=== PATIENT | female | born 1930 | race Caucasian/White ===

== ENCOUNTER 2019-02-16 16:56 | Inpatient (IN) | payer MEDICARE, OTHER ==
[~2019-02-16] VITALS: Ht 161 cm; Wt 85.7 kg
[2019-02-16] MEDS ORDERED: HYDR-3980 PO (19:06)
[2019-02-16] MEDS ORDERED: CALC300T4 PO (19:06)
[2019-02-16] MEDS ORDERED: ZOLP5TAB2 PO (19:06)
[2019-02-16] MEDS ORDERED: ATEN25TA PO (19:06)
[2019-02-16] MEDS ORDERED: CHOL10005 PO (19:06)
[2019-02-16] MEDS ORDERED: ENOX40DI SQ (19:06)
[2019-02-16] MEDS ORDERED: ACET-2154 PO (19:06)
[2019-02-16] MEDS ORDERED: ESCI10TA55 PO (19:06)
[2019-02-16] MEDS ORDERED: CARB-93 PO (19:06)
[2019-02-16] MEDS ORDERED: LEVO112T5 PO (19:06)
[2019-02-16] MEDS ORDERED: HYDR-3326 PO (19:06)
[2019-02-16] MEDS ORDERED: ATOR20TA PO (19:06)
[2019-02-16] MEDS ORDERED: ENTA200T3 PO (19:06)
[2019-02-16] MEDS ORDERED: CYAN-51 PO (19:06)
[2019-02-16] MEDS ORDERED: AMAN100T PO (19:06)
[2019-02-16 19:40] VITALS: BP 115/76
[2019-02-16] MEDS ORDERED: ZOLPIDEM 5 MG TABLET PO SCH (20:45)
[2019-02-16] MEDS: ACETAMINOPHEN 325 MG TABLET PO PRN (22:05)
[2019-02-16] MEDS: ATORVASTATIN 20 MG TABLET PO SCH (22:05)
[2019-02-16] MEDS ORDERED: ENOXAPARIN SODIUM 40 MG/0.4 ML DISP.SYRIN SQ ONE (23:00)
[2019-02-17] MEDS ORDERED: HYDROCODONE/APAP 10-325 MG TABLET PO PRN
[2019-02-17 04:00] VITALS: BP 138/73
[2019-02-17] MEDS ORDERED: ZOLPIDEM 5 MG TABLET PO PRN (06:45)
[2019-02-17] MEDS: ACETAMINOPHEN 325 MG TABLET PO PRN ×3 (07:00→21:32)
[2019-02-17] MEDS: LEVOTHYROXINE SODIUM 112 MCG TABLET PO SCH (07:16)
[2019-02-17 08:00] VITALS: BP 127/70
[2019-02-17] MEDS: CALCIUM CARBONATE 500 MG TAB.CHEW PO SCH (09:01)
[2019-02-17] MEDS: ESCITALOPRAM OXALATE 10 MG TABLET PO SCH (09:01)
[2019-02-17] MEDS: AMANTADINE HCL 100 MG CAPSULE PO SCH (09:01)
[2019-02-17] MEDS: ENTACAPONE 200 MG TABLET PO SCH ×3 (09:01→16:37)
[2019-02-17] MEDS: CHOLECALCIFEROL 400 UNITS TABLET PO SCH (09:01)
[2019-02-17] MEDS: CARBIDOPA/LEVODOPA 25-100MG TABLET PO SCH ×3 (09:02→16:37)
[2019-02-17] MEDS: CYANOCOBALAMIN 1,000 MCG TABLET PO SCH (09:02)
[2019-02-17] MEDS: ATENOLOL 25 MG TABLET PO SCH (09:03)
[2019-02-17] MEDS: HYDROCODONE/APAP 5-325MG TABLET PO PRN (09:11)
[2019-02-17] MEDS ORDERED: ENOXAPARIN SODIUM 40 MG/0.4 ML DISP.SYRIN SQ SCH ×2 (09:19→09:21)
[2019-02-17 16:56] VITALS: BP 125/67
[2019-02-17] MEDS: ATORVASTATIN 20 MG TABLET PO SCH (20:34)
[2019-02-17] MEDS: ENOXAPARIN SODIUM 40 MG/0.4 ML DISP.SYRIN SQ SCH (20:37)
[2019-02-17 20:51] VITALS: BP 127/78
[2019-02-18 05:33] VITALS: BP 139/72
[2019-02-18] MEDS: LEVOTHYROXINE SODIUM 112 MCG TABLET PO SCH (06:30)
[2019-02-18 07:57] VITALS: BP 133/66
[2019-02-18] MEDS: CALCIUM CARBONATE 500 MG TAB.CHEW PO SCH (08:55)
[2019-02-18] MEDS: AMANTADINE HCL 100 MG CAPSULE PO SCH (08:55)
[2019-02-18] MEDS: ENTACAPONE 200 MG TABLET PO SCH ×3 (08:55→16:34)
[2019-02-18] MEDS: ESCITALOPRAM OXALATE 10 MG TABLET PO SCH (08:55)
[2019-02-18] MEDS: CHOLECALCIFEROL 400 UNITS TABLET PO SCH (08:56)
[2019-02-18] MEDS: CYANOCOBALAMIN 1,000 MCG TABLET PO SCH (08:56)
[2019-02-18] MEDS: CARBIDOPA/LEVODOPA 25-100MG TABLET PO SCH ×3 (08:56→16:34)
[2019-02-18] MEDS: ATENOLOL 25 MG TABLET PO SCH (08:57)
[2019-02-18 15:42] VITALS: BP 117/60
[2019-02-18] MEDS: ACETAMINOPHEN 325 MG TABLET PO PRN (16:34)
[2019-02-18 20:12] VITALS: BP 99/69
[2019-02-18] MEDS: ATORVASTATIN 20 MG TABLET PO SCH (20:59)
[2019-02-18] MEDS: ENOXAPARIN SODIUM 40 MG/0.4 ML DISP.SYRIN SQ SCH (21:00)
[2019-02-19 04:57] VITALS: BP 117/63
[2019-02-19] MEDS: ACETAMINOPHEN ES 500 MG TABLET PO SCH ×3 (05:09→21:40)
[2019-02-19] MEDS: LEVOTHYROXINE SODIUM 112 MCG TABLET PO SCH (06:50)
[2019-02-19 07:30] VITALS: BP 103/64
[2019-02-19] MEDS: CARBIDOPA/LEVODOPA 25-100MG TABLET PO SCH ×3 (09:00→17:33)
[2019-02-19] MEDS: ESCITALOPRAM OXALATE 10 MG TABLET PO SCH (09:00)
[2019-02-19] MEDS: ATENOLOL 25 MG TABLET PO SCH (09:00)
[2019-02-19] MEDS: CALCIUM CARBONATE 500 MG TAB.CHEW PO SCH (09:00)
[2019-02-19] MEDS: CYANOCOBALAMIN 1,000 MCG TABLET PO SCH (09:00)
[2019-02-19] MEDS: CHOLECALCIFEROL 400 UNITS TABLET PO SCH (09:01)
[2019-02-19] MEDS: AMANTADINE HCL 100 MG CAPSULE PO SCH (09:02)
[2019-02-19] MEDS: ENTACAPONE 200 MG TABLET PO SCH ×3 (09:02→17:33)
[2019-02-19] MEDS: HYDROCODONE/APAP 5-325MG TABLET PO PRN (09:11)
[2019-02-19 16:00] VITALS: BP 119/63
[2019-02-19] MEDS: ACETAMINOPHEN 325 MG TABLET PO PRN (20:00)
[2019-02-19 20:24] VITALS: BP 110/54
[2019-02-19] MEDS: ATORVASTATIN 20 MG TABLET PO SCH (20:54)
[2019-02-19] MEDS: ENOXAPARIN SODIUM 40 MG/0.4 ML DISP.SYRIN SQ SCH (20:59)
[2019-02-20] MEDS: ACETAMINOPHEN 325 MG TABLET PO PRN (04:26)
[2019-02-20 04:57] VITALS: BP 118/44
[2019-02-20] MEDS: ACETAMINOPHEN ES 500 MG TABLET PO SCH ×3 (06:05→21:06)
[2019-02-20] MEDS: LEVOTHYROXINE SODIUM 112 MCG TABLET PO SCH (06:21)
[2019-02-20 07:01] LABS: BASOPHILS # (AUTO) 0.1 K/uL (0.0-8.0); BASOPHILS % (AUTO) 0.9 % (0.0-2.0); EOSINOPHILS # (AUTO) 0.2 K/uL (0.0-0.7); EOSINOPHILS % (AUTO) 3.5 % (0.0-7.0); HEMATOCRIT 33.2 % (31.2-41.9); HEMOGLOBIN 11.1 g/dL (10.9-14.3); LYMPHOCYTES % (AUTO) 19.3 % (20.5-51.5); MEAN CORPUSCULAR HEMOGLOBIN 31.4 uug (24.7-32.8); MEAN CORPUSCULAR HGB CONC 33 g/dL (32.3-35.6); MONOCYTES # (AUTO) 0.5 K/uL (2.0-10.0); MONOCYTES % (AUTO) 10.2 % (0.0-11.0); NEUTROPHILS # (AUTO) 3.5 K/uL (1.8-8.9); NEUTROPHILS % (AUTO) 66.1 % (38.5-71.5); PLATELET COUNT (AUTO) 214 K/uL (179-408); RED BLOOD CELL COUNT(AUTO) 3.53 MIL/uL (3.63-4.92); WHITE BLOOD COUNT (AUTO) 5.3 K/uL (3.8-11.8)
[2019-02-20 07:25] LABS: THYROID STIMULATING HORMONE 8.96 mIU/mL (0.358-3.740)
[2019-02-20 07:43] LABS: BILIRUBIN,TOTAL 0.6 mg/dL (0.2-1.0); CREATININE 0.9 mg/dL (0.6-1.3); MAGNESIUM 2.1 mg/dL (1.8-2.4); PHOSPHOROUS 3.9 mg/dL (2.5-4.9); POTASSIUM 4.4 mmol/L (3.5-5.1); TOTAL PROTEIN, SERUM 6.4 g/dL (6.4-8.2)
[2019-02-20] MEDS: HYDROCODONE/APAP 5-325MG TABLET PO PRN ×3 (07:53→17:43)
[2019-02-20] MEDS: ENTACAPONE 200 MG TABLET PO SCH ×3 (08:02→17:10)
[2019-02-20] MEDS: CHOLECALCIFEROL 400 UNITS TABLET PO SCH (08:02)
[2019-02-20] MEDS: CARBIDOPA/LEVODOPA 25-100MG TABLET PO SCH ×3 (08:02→17:10)
[2019-02-20] MEDS: CALCIUM CARBONATE 500 MG TAB.CHEW PO SCH (08:02)
[2019-02-20] MEDS: CYANOCOBALAMIN 1,000 MCG TABLET PO SCH (08:03)
[2019-02-20] MEDS: ATENOLOL 25 MG TABLET PO SCH (08:03)
[2019-02-20 08:07] VITALS: BP 102/71
[2019-02-20] MEDS: ESCITALOPRAM OXALATE 10 MG TABLET PO SCH (08:42)
[2019-02-20] MEDS: AMANTADINE HCL 100 MG CAPSULE PO SCH (09:21)
[2019-02-20 15:20] VITALS: BP 115/71
[2019-02-20] MEDS: ATORVASTATIN 20 MG TABLET PO SCH (20:20)
[2019-02-20] MEDS: ENOXAPARIN SODIUM 40 MG/0.4 ML DISP.SYRIN SQ SCH (20:26)
[2019-02-20] MEDS: METHYL SALICYLATE/MENTHOL CREAM 28 GM TUBE TOP SCH (20:27)
[2019-02-20 22:00] VITALS: BP 114/62
[2019-02-21] MEDS: HYDROCODONE/APAP 5-325MG TABLET PO PRN ×3 (02:16→20:37)
[2019-02-21 05:48] VITALS: BP 119/60
[2019-02-21] MEDS: ACETAMINOPHEN ES 500 MG TABLET PO SCH ×3 (05:52→22:00)
[2019-02-21] MEDS: LEVOTHYROXINE SODIUM 125 MCG TABLET PO SCH (06:30)
[2019-02-21 07:55] VITALS: BP 122/63
[2019-02-21] MEDS: CYANOCOBALAMIN 1,000 MCG TABLET PO SCH (08:52)
[2019-02-21] MEDS: ESCITALOPRAM OXALATE 10 MG TABLET PO SCH (08:52)
[2019-02-21] MEDS: CHOLECALCIFEROL 400 UNITS TABLET PO SCH (08:52)
[2019-02-21] MEDS: CARBIDOPA/LEVODOPA 25-100MG TABLET PO SCH ×3 (08:52→16:20)
[2019-02-21] MEDS: LIDOCAINE 5% PATCH TD SCH (08:52)
[2019-02-21] MEDS: CALCIUM CARBONATE 500 MG TAB.CHEW PO SCH (08:52)
[2019-02-21] MEDS: AMANTADINE HCL 100 MG CAPSULE PO SCH (08:53)
[2019-02-21] MEDS: ENTACAPONE 200 MG TABLET PO SCH ×3 (08:53→16:20)
[2019-02-21] MEDS: ATENOLOL 25 MG TABLET PO SCH (08:53)
[2019-02-21 16:37] VITALS: BP 101/58
[2019-02-21] MEDS: ATORVASTATIN 20 MG TABLET PO SCH (20:37)
[2019-02-21] MEDS: ENOXAPARIN SODIUM 40 MG/0.4 ML DISP.SYRIN SQ SCH (20:41)
[2019-02-21 20:52] VITALS: BP 121/60
[2019-02-21] MEDS: METHYL SALICYLATE/MENTHOL CREAM 28 GM TUBE TOP SCH (21:00)
[2019-02-22] MEDS: ACETAMINOPHEN ES 500 MG TABLET PO SCH ×3 (05:06→21:56)
[2019-02-22 05:31] VITALS: BP 108/63
[2019-02-22] MEDS: LEVOTHYROXINE SODIUM 125 MCG TABLET PO SCH (06:12)
[2019-02-22 07:57] VITALS: BP 118/52
[2019-02-22] MEDS: ENTACAPONE 200 MG TABLET PO SCH ×3 (08:18→16:04)
[2019-02-22] MEDS: CARBIDOPA/LEVODOPA 25-100MG TABLET PO SCH ×3 (08:18→16:04)
[2019-02-22] MEDS: CHOLECALCIFEROL 400 UNITS TABLET PO SCH (08:18)
[2019-02-22] MEDS: CYANOCOBALAMIN 1,000 MCG TABLET PO SCH (08:18)
[2019-02-22] MEDS: AMANTADINE HCL 100 MG CAPSULE PO SCH (08:18)
[2019-02-22] MEDS: CALCIUM CARBONATE 500 MG TAB.CHEW PO SCH (08:18)
[2019-02-22] MEDS: ATENOLOL 25 MG TABLET PO SCH (08:19)
[2019-02-22] MEDS: HYDROCODONE/APAP 5-325MG TABLET PO PRN ×2 (08:19→16:13)
[2019-02-22] MEDS: LIDOCAINE 5% PATCH TD SCH (08:19)
[2019-02-22] MEDS: ESCITALOPRAM OXALATE 10 MG TABLET PO SCH (08:19)
[2019-02-22 16:35] VITALS: BP 115/60
[2019-02-22 19:51] VITALS: BP 119/62
[2019-02-22] MEDS: ATORVASTATIN 20 MG TABLET PO SCH (20:29)
[2019-02-22] MEDS: ENOXAPARIN SODIUM 40 MG/0.4 ML DISP.SYRIN SQ SCH (20:29)
[2019-02-22] MEDS: METHYL SALICYLATE/MENTHOL CREAM 28 GM TUBE TOP SCH (20:29)
[2019-02-23] MEDS: ACETAMINOPHEN ES 500 MG TABLET PO SCH ×3 (05:00→21:05)
[2019-02-23 05:17] VITALS: BP 119/59
[2019-02-23 05:29] VITALS: BP 119/59
[2019-02-23] MEDS ORDERED: Z GUARD REMEDY PASTE 57 GM TUBE TOP PRN (06:00)
[2019-02-23] MEDS: LEVOTHYROXINE SODIUM 125 MCG TABLET PO SCH (06:39)
[2019-02-23] MEDS: HYDROCODONE/APAP 5-325MG TABLET PO PRN ×2 (08:14→17:50)
[2019-02-23] MEDS: CARBIDOPA/LEVODOPA 25-100MG TABLET PO SCH ×3 (08:15→17:51)
[2019-02-23] MEDS: AMANTADINE HCL 100 MG CAPSULE PO SCH (08:15)
[2019-02-23] MEDS: CALCIUM CARBONATE 500 MG TAB.CHEW PO SCH (08:15)
[2019-02-23] MEDS: CYANOCOBALAMIN 1,000 MCG TABLET PO SCH (08:15)
[2019-02-23] MEDS: LIDOCAINE 5% PATCH TD SCH (08:15)
[2019-02-23] MEDS: ESCITALOPRAM OXALATE 10 MG TABLET PO SCH (08:15)
[2019-02-23] MEDS: ENTACAPONE 200 MG TABLET PO SCH ×3 (08:15→17:51)
[2019-02-23] MEDS: CHOLECALCIFEROL 400 UNITS TABLET PO SCH (08:16)
[2019-02-23] MEDS: ATENOLOL 25 MG TABLET PO SCH (08:24)
[2019-02-23 16:42] VITALS: BP 110/56
[2019-02-23] MEDS ORDERED: MIRALAX 17 GM POWD.PACK PO PRN (18:30)
[2019-02-23 19:48] VITALS: BP 109/61
[2019-02-23] MEDS: DOCUSATE SODIUM 100 MG CAPSULE PO SCH (20:29)
[2019-02-23] MEDS: ATORVASTATIN 20 MG TABLET PO SCH (20:29)
[2019-02-23] MEDS: METHYL SALICYLATE/MENTHOL CREAM 28 GM TUBE TOP SCH (20:30)
[2019-02-23] MEDS: ENOXAPARIN SODIUM 40 MG/0.4 ML DISP.SYRIN SQ SCH (20:31)
[2019-02-24] MEDS: ACETAMINOPHEN 325 MG TABLET PO PRN (03:15)
[2019-02-24 04:40] VITALS: BP 129/60
[2019-02-24] MEDS: ACETAMINOPHEN ES 500 MG TABLET PO SCH ×3 (06:17→21:07)
[2019-02-24] MEDS: LEVOTHYROXINE SODIUM 125 MCG TABLET PO SCH (06:17)
[2019-02-24 08:00] VITALS: BP 119/57
[2019-02-24] MEDS: LIDOCAINE 5% PATCH TD SCH (08:45)
[2019-02-24] MEDS: CALCIUM CARBONATE 500 MG TAB.CHEW PO SCH (08:45)
[2019-02-24] MEDS: CYANOCOBALAMIN 1,000 MCG TABLET PO SCH (08:45)
[2019-02-24] MEDS: ESCITALOPRAM OXALATE 10 MG TABLET PO SCH (08:45)
[2019-02-24] MEDS: CARBIDOPA/LEVODOPA 25-100MG TABLET PO SCH ×3 (08:45→17:35)
[2019-02-24] MEDS: ENTACAPONE 200 MG TABLET PO SCH ×3 (08:45→17:35)
[2019-02-24] MEDS: ATENOLOL 25 MG TABLET PO SCH (08:46)
[2019-02-24] MEDS: AMANTADINE HCL 100 MG CAPSULE PO SCH (08:46)
[2019-02-24] MEDS: CHOLECALCIFEROL 400 UNITS TABLET PO SCH (08:46)
[2019-02-24 17:23] VITALS: BP 124/71
[2019-02-24] MEDS: ENOXAPARIN SODIUM 40 MG/0.4 ML DISP.SYRIN SQ SCH (20:26)
[2019-02-24] MEDS: DOCUSATE SODIUM 100 MG CAPSULE PO SCH (20:27)
[2019-02-24] MEDS: METHYL SALICYLATE/MENTHOL CREAM 28 GM TUBE TOP SCH (20:27)
[2019-02-24] MEDS: ATORVASTATIN 20 MG TABLET PO SCH (20:27)
[2019-02-24 21:29] VITALS: BP 125/70
[2019-02-25] MEDS: ACETAMINOPHEN 325 MG TABLET PO PRN (02:50)
[2019-02-25 05:14] VITALS: BP 115/62
[2019-02-25] MEDS: ACETAMINOPHEN ES 500 MG TABLET PO SCH ×3 (06:07→21:00)
[2019-02-25] MEDS: LEVOTHYROXINE SODIUM 125 MCG TABLET PO SCH (06:07)
[2019-02-25 07:30] VITALS: BP 125/57
[2019-02-25] MEDS: CHOLECALCIFEROL 400 UNITS TABLET PO SCH (09:04)
[2019-02-25] MEDS: ENTACAPONE 200 MG TABLET PO SCH ×3 (09:04→17:04)
[2019-02-25] MEDS: CYANOCOBALAMIN 1,000 MCG TABLET PO SCH (09:04)
[2019-02-25] MEDS: CALCIUM CARBONATE 500 MG TAB.CHEW PO SCH (09:04)
[2019-02-25] MEDS: ESCITALOPRAM OXALATE 10 MG TABLET PO SCH (09:04)
[2019-02-25] MEDS: AMANTADINE HCL 100 MG CAPSULE PO SCH (09:06)
[2019-02-25] MEDS: ATENOLOL 25 MG TABLET PO SCH (09:06)
[2019-02-25] MEDS: LIDOCAINE 5% PATCH TD SCH (09:08)
[2019-02-25] MEDS: CARBIDOPA/LEVODOPA 25-100MG TABLET PO SCH ×3 (09:09→17:03)
[2019-02-25 16:00] VITALS: BP 106/58
[2019-02-25 20:05] VITALS: BP 106/57
[2019-02-25] MEDS: ATORVASTATIN 20 MG TABLET PO SCH (20:37)
[2019-02-25] MEDS: ENOXAPARIN SODIUM 40 MG/0.4 ML DISP.SYRIN SQ SCH (20:37)
[2019-02-25] MEDS: DOCUSATE SODIUM 100 MG CAPSULE PO SCH (20:37)
[2019-02-25] MEDS: METHYL SALICYLATE/MENTHOL CREAM 28 GM TUBE TOP SCH (20:41)
[2019-02-26] MEDS: ACETAMINOPHEN ES 500 MG TABLET PO SCH ×3 (05:24→21:04)
[2019-02-26 05:30] VITALS: BP 126/46
[2019-02-26] MEDS: LEVOTHYROXINE SODIUM 125 MCG TABLET PO SCH (06:01)
[2019-02-26] MEDS: CALCIUM CARBONATE 500 MG TAB.CHEW PO SCH (08:42)
[2019-02-26] MEDS: CARBIDOPA/LEVODOPA 25-100MG TABLET PO SCH ×3 (08:42→17:22)
[2019-02-26] MEDS: AMANTADINE HCL 100 MG CAPSULE PO SCH (08:42)
[2019-02-26] MEDS: CHOLECALCIFEROL 400 UNITS TABLET PO SCH (08:42)
[2019-02-26] MEDS: ENTACAPONE 200 MG TABLET PO SCH ×3 (08:43→17:22)
[2019-02-26] MEDS: ATENOLOL 25 MG TABLET PO SCH (08:43)
[2019-02-26] MEDS: ESCITALOPRAM OXALATE 10 MG TABLET PO SCH (08:43)
[2019-02-26] MEDS: HYDROCODONE/APAP 5-325MG TABLET PO PRN (08:44)
[2019-02-26] MEDS: CYANOCOBALAMIN 1,000 MCG TABLET PO SCH (08:44)
[2019-02-26] MEDS: LIDOCAINE 5% PATCH TD SCH (08:44)
[2019-02-26 08:58] VITALS: BP 115/54
[2019-02-26 20:18] VITALS: BP 114/61
[2019-02-26] MEDS: DOCUSATE SODIUM 100 MG CAPSULE PO SCH (20:52)
[2019-02-26] MEDS: ATORVASTATIN 20 MG TABLET PO SCH (20:52)
[2019-02-26] MEDS: ENOXAPARIN SODIUM 40 MG/0.4 ML DISP.SYRIN SQ SCH (20:56)
[2019-02-26] MEDS: METHYL SALICYLATE/MENTHOL CREAM 28 GM TUBE TOP SCH (20:59)
[2019-02-27 05:19] VITALS: BP 110/63
[2019-02-27] MEDS: ACETAMINOPHEN ES 500 MG TABLET PO SCH ×3 (06:23→21:11)
[2019-02-27] MEDS: LEVOTHYROXINE SODIUM 125 MCG TABLET PO SCH (06:23)
[2019-02-27 08:00] VITALS: BP 133/63
[2019-02-27] MEDS: CHOLECALCIFEROL 400 UNITS TABLET PO SCH (09:17)
[2019-02-27] MEDS: ESCITALOPRAM OXALATE 10 MG TABLET PO SCH (09:17)
[2019-02-27] MEDS: CALCIUM CARBONATE 500 MG TAB.CHEW PO SCH (09:17)
[2019-02-27] MEDS: CARBIDOPA/LEVODOPA 25-100MG TABLET PO SCH ×3 (09:17→17:03)
[2019-02-27] MEDS: ENTACAPONE 200 MG TABLET PO SCH ×3 (09:17→17:03)
[2019-02-27] MEDS: AMANTADINE HCL 100 MG CAPSULE PO SCH (09:17)
[2019-02-27] MEDS: ATENOLOL 25 MG TABLET PO SCH (09:18)
[2019-02-27] MEDS: LIDOCAINE 5% PATCH TD SCH (09:18)
[2019-02-27] MEDS: CYANOCOBALAMIN 1,000 MCG TABLET PO SCH (09:18)
[2019-02-27] MEDS: HYDROCODONE/APAP 5-325MG TABLET PO PRN (10:40)
[2019-02-27 16:00] VITALS: BP 132/61
[2019-02-27] MEDS: ACETAMINOPHEN 325 MG TABLET PO PRN (17:03)
[2019-02-27 19:50] VITALS: BP 112/55
[2019-02-27] MEDS: DOCUSATE SODIUM 100 MG CAPSULE PO SCH (20:32)
[2019-02-27] MEDS: ATORVASTATIN 20 MG TABLET PO SCH (20:32)
[2019-02-27] MEDS: METHYL SALICYLATE/MENTHOL CREAM 28 GM TUBE TOP SCH (20:33)
[2019-02-27] MEDS: ENOXAPARIN SODIUM 40 MG/0.4 ML DISP.SYRIN SQ SCH (20:36)
[2019-02-28 05:41] VITALS: BP 123/76
[2019-02-28] MEDS: ACETAMINOPHEN ES 500 MG TABLET PO SCH ×3 (06:10→21:04)
[2019-02-28] MEDS: LEVOTHYROXINE SODIUM 125 MCG TABLET PO SCH (06:40)
[2019-02-28 08:00] VITALS: BP 120/70
[2019-02-28] MEDS: CYANOCOBALAMIN 1,000 MCG TABLET PO SCH (08:24)
[2019-02-28] MEDS: CALCIUM CARBONATE 500 MG TAB.CHEW PO SCH (08:24)
[2019-02-28] MEDS: CARBIDOPA/LEVODOPA 25-100MG TABLET PO SCH ×3 (08:24→16:46)
[2019-02-28] MEDS: ESCITALOPRAM OXALATE 10 MG TABLET PO SCH (08:24)
[2019-02-28] MEDS: HYDROCODONE/APAP 5-325MG TABLET PO PRN ×2 (08:24→17:00)
[2019-02-28] MEDS: AMANTADINE HCL 100 MG CAPSULE PO SCH (08:25)
[2019-02-28] MEDS: CHOLECALCIFEROL 400 UNITS TABLET PO SCH (08:25)
[2019-02-28] MEDS: ENTACAPONE 200 MG TABLET PO SCH ×3 (08:26→16:46)
[2019-02-28] MEDS: ATENOLOL 25 MG TABLET PO SCH (08:27)
[2019-02-28] MEDS: LIDOCAINE 5% PATCH TD SCH (08:28)
[2019-02-28 15:23] LABS: *BILIRUBIN,URIN NEGATIVE (NEGATIVE); *CLARITY,URINE CLEAR (CLEAR); *COLOR,URINE YELLOW (YELLOW); *KETONES,URINE NEGATIVE (NEGATIVE); *UROBILINOGEN,URINE 0.2 E.U./dl (NORMAL); LEUKOCYTE ESTERASE ,URINE NEGATIVE (NEGATIVE); NITRITE, URINE NEGATIVE (NEGATIVE); PH,URINE 5.5 (5.0-8.0); UGLUCOSE NEGATIVE (NEGATIVE)
[2019-02-28 15:29] LABS: *BLOOD, URINE TRACE (NEGATIVE); MUCUS,URINE FEW /LPF (0-FEW); SQUAMOUS EPITHELIAL CELL,UR FEW /HPF (NONE SEEN); WBC,URINE 0-3 /HPF (0-3)
[2019-02-28 18:00] VITALS: BP 125/65
[2019-02-28 20:08] VITALS: BP 124/69
[2019-02-28] MEDS: ATORVASTATIN 20 MG TABLET PO SCH (21:03)
[2019-02-28] MEDS: DOCUSATE SODIUM 100 MG CAPSULE PO SCH (21:03)
[2019-02-28] MEDS: METHYL SALICYLATE/MENTHOL CREAM 28 GM TUBE TOP SCH (21:04)
[2019-02-28] MEDS: ENOXAPARIN SODIUM 40 MG/0.4 ML DISP.SYRIN SQ SCH (21:07)
[2019-03-01 05:39] VITALS: BP 118/54
[2019-03-01 05:41] VITALS: BP 121/69
[2019-03-01] MEDS: ACETAMINOPHEN ES 500 MG TABLET PO SCH ×3 (06:29→21:12)
[2019-03-01] MEDS: LEVOTHYROXINE SODIUM 125 MCG TABLET PO SCH (06:29)
[2019-03-01 07:25] LABS: CREATININE 0.8 mg/dL (0.6-1.3); MAGNESIUM 1.9 mg/dL (1.8-2.4); PHOSPHOROUS 3.6 mg/dL (2.5-4.9); POTASSIUM 4.5 mmol/L (3.5-5.1)
[2019-03-01 07:31] LABS: BASOPHILS # (AUTO) 0.1 K/uL (0.0-8.0); BASOPHILS % (AUTO) 1.1 % (0.0-2.0); EOSINOPHILS # (AUTO) 0.1 K/uL (0.0-0.7); EOSINOPHILS % (AUTO) 2.4 % (0.0-7.0); HEMATOCRIT 33.7 % (31.2-41.9); HEMOGLOBIN 11.3 g/dL (10.9-14.3); LYMPHOCYTES # (AUTO) 1.3 K/uL (20.0-40.0); LYMPHOCYTES % (AUTO) 24.6 % (20.5-51.5); MEAN CORPUSCULAR HEMOGLOBIN 32.1 uug (24.7-32.8); MEAN CORPUSCULAR HGB CONC 34 g/dL (32.3-35.6); MEAN CORPUSCULAR VOLUME 95.7 fL (75.5-95.3); MONOCYTES # (AUTO) 0.4 K/uL (2.0-10.0); MONOCYTES % (AUTO) 8.7 % (0.0-11.0); NEUTROPHILS # (AUTO) 3.2 K/uL (1.8-8.9); NEUTROPHILS % (AUTO) 63.2 % (38.5-71.5); RED BLOOD CELL COUNT(AUTO) 3.53 MIL/uL (3.63-4.92); WHITE BLOOD COUNT (AUTO) 5.1 K/uL (3.8-11.8)
[2019-03-01 07:41] LABS: PLATELET COUNT (AUTO) 332 K/uL (179-408)
[2019-03-01] MEDS: CHOLECALCIFEROL 400 UNITS TABLET PO SCH (08:26)
[2019-03-01] MEDS: ESCITALOPRAM OXALATE 10 MG TABLET PO SCH (08:26)
[2019-03-01] MEDS: ENTACAPONE 200 MG TABLET PO SCH ×3 (08:26→16:44)
[2019-03-01] MEDS: CALCIUM CARBONATE 500 MG TAB.CHEW PO SCH (08:26)
[2019-03-01] MEDS: AMANTADINE HCL 100 MG CAPSULE PO SCH (08:27)
[2019-03-01] MEDS: ATENOLOL 25 MG TABLET PO SCH (08:28)
[2019-03-01] MEDS: LIDOCAINE 5% PATCH TD SCH (08:29)
[2019-03-01] MEDS: CYANOCOBALAMIN 1,000 MCG TABLET PO SCH (08:30)
[2019-03-01] MEDS: CARBIDOPA/LEVODOPA 25-100MG TABLET PO SCH ×3 (08:31→16:44)
[2019-03-01] MEDS: HYDROCODONE/APAP 5-325MG TABLET PO PRN ×2 (08:54→16:44)
[2019-03-01 16:28] VITALS: BP 107/69
[2019-03-01] MEDS: ATORVASTATIN 20 MG TABLET PO SCH (21:11)
[2019-03-01] MEDS: DOCUSATE SODIUM 100 MG CAPSULE PO SCH (21:11)
[2019-03-01] MEDS: ENOXAPARIN SODIUM 40 MG/0.4 ML DISP.SYRIN SQ SCH (21:13)
[2019-03-01] MEDS: METHYL SALICYLATE/MENTHOL CREAM 28 GM TUBE TOP SCH (21:15)
[2019-03-01 22:33] VITALS: BP 110/55
[2019-03-02 05:15] VITALS: BP 128/60
[2019-03-02] MEDS: LEVOTHYROXINE SODIUM 125 MCG TABLET PO SCH (06:08)
[2019-03-02] MEDS: ACETAMINOPHEN ES 500 MG TABLET PO SCH ×3 (06:08→22:00)
[2019-03-02 07:30] VITALS: BP 115/58
[2019-03-02] MEDS: CHOLECALCIFEROL 400 UNITS TABLET PO SCH (09:04)
[2019-03-02] MEDS: CYANOCOBALAMIN 1,000 MCG TABLET PO SCH (09:05)
[2019-03-02] MEDS: CALCIUM CARBONATE 500 MG TAB.CHEW PO SCH (09:05)
[2019-03-02] MEDS: CARBIDOPA/LEVODOPA 25-100MG TABLET PO SCH ×3 (09:05→17:34)
[2019-03-02] MEDS: AMANTADINE HCL 100 MG CAPSULE PO SCH (09:05)
[2019-03-02] MEDS: ESCITALOPRAM OXALATE 10 MG TABLET PO SCH (09:06)
[2019-03-02] MEDS: ENTACAPONE 200 MG TABLET PO SCH ×3 (09:06→17:34)
[2019-03-02] MEDS: LIDOCAINE 5% PATCH TD SCH (09:07)
[2019-03-02] MEDS: ATENOLOL 25 MG TABLET PO SCH (09:08)
[2019-03-02] MEDS: HYDROCODONE/APAP 5-325MG TABLET PO PRN ×3 (11:17→19:50)
[2019-03-02 16:13] VITALS: BP 110/56
[2019-03-02 20:28] VITALS: BP 98/63
[2019-03-02] MEDS: ENOXAPARIN SODIUM 40 MG/0.4 ML DISP.SYRIN SQ SCH (20:30)
[2019-03-02] MEDS: ATORVASTATIN 20 MG TABLET PO SCH (20:31)
[2019-03-02] MEDS: DOCUSATE SODIUM 100 MG CAPSULE PO SCH (20:31)
[2019-03-02] MEDS: METHYL SALICYLATE/MENTHOL CREAM 28 GM TUBE TOP SCH (20:41)
[2019-03-03 05:28] VITALS: BP 121/58
[2019-03-03] MEDS: LEVOTHYROXINE SODIUM 125 MCG TABLET PO SCH (06:23)
[2019-03-03] MEDS: ACETAMINOPHEN ES 500 MG TABLET PO SCH ×2 (06:27→12:18)
[2019-03-03 07:30] VITALS: BP 124/55
[2019-03-03] MEDS: CARBIDOPA/LEVODOPA 25-100MG TABLET PO SCH ×2 (09:16→12:17)
[2019-03-03] MEDS: ESCITALOPRAM OXALATE 10 MG TABLET PO SCH (09:17)
[2019-03-03] MEDS: CYANOCOBALAMIN 1,000 MCG TABLET PO SCH (09:17)
[2019-03-03] MEDS: CALCIUM CARBONATE 500 MG TAB.CHEW PO SCH (09:17)
[2019-03-03] MEDS: ENTACAPONE 200 MG TABLET PO SCH ×2 (09:20→12:12)
[2019-03-03] MEDS: AMANTADINE HCL 100 MG CAPSULE PO SCH (09:21)
[2019-03-03] MEDS: LIDOCAINE 5% PATCH TD SCH (09:22)
[2019-03-03] MEDS: CHOLECALCIFEROL 400 UNITS TABLET PO SCH (09:24)
== END 2019-03-03 14:45 | disposition home health service (06) | DRG 560 ==
PROVIDERS: ADMIT Physical Medicine & Rehabilitation Pain Medicine; ATTEND Physical Medicine & Rehabilitation Pain Medicine
DX: S42.211D Unspecified displaced fracture of surgical neck of right humerus, subsequent encounter for fracture with routine healing (principal); D68.59 Other primary thrombophilia; E44.0 Moderate protein-calorie malnutrition; S32.10XD Unspecified fracture of sacrum, subsequent encounter for fracture with routine healing; W19.XXXD Unspecified fall, subsequent encounter; G20 Parkinson's disease; R26.81 Unsteadiness on feet; E03.9 Hypothyroidism, unspecified; E78.5 Hyperlipidemia, unspecified; I10 Essential (primary) hypertension; M81.0 Age-related osteoporosis without current pathological fracture; M19.90 Unspecified osteoarthritis, unspecified site; R26.9 Unspecified abnormalities of gait and mobility; Z88.5 Allergy status to narcotic agent; Z88.0 Allergy status to penicillin
CPT/HCPCS: 36415; 73030; 73060; 82652; 83550; 83735; 84100; 84443; 85025; A4663; A9150; J1650